=== PATIENT | female | born 2000 | race African-American/Black ===

== ENCOUNTER 2019-01-05 10:36 | Emergency (ER) | payer SELFPAY ==
[~2019-01-05] VITALS: Ht 157.5 cm; Wt 50.0 kg
[2019-01-05] MEDS ORDERED: SODIUM CHLORIDE 0.9% 1,000 ML IV ONE (11:41)
[2019-01-05] MEDS ORDERED: ONDANSETRON HCL 4MG/2ML INJ IV STA (11:41)
[2019-01-05] MEDS ORDERED: KETOROLAC 30MG/ML VIAL IV ONE (11:45)
[2019-01-05 13:17] VITALS: BP 109/75
== END 2019-01-05 13:19 | disposition home or self-care (01) ==
LOC: ER 10:36
DX: R11.2 Nausea with vomiting, unspecified (principal)
CPT/HCPCS: 81025; 96361; 96374; 96375; 99283; J1885; J2405; J7030

== ENCOUNTER 2024-06-16 22:08 | Emergency (ER) | payer SELFPAY ==
[~2024-06-16] VITALS: Ht 157.5 cm; Wt 53.0 kg
[~2024-06-16 22:08] MED LIST: ALBU6.7H3 INH; ONDA4TAB5 MT
[2024-06-16 22:20] VITALS: O2SAT 100
[2024-06-16 22:23] VITALS: BP 137/82; PULSE 109; RESP 18; TEMP 97.8; O2SAT 100
[2024-06-16] MEDS: ONDANSETRON HCL 4MG TABLET PO ONE (22:30)
== END 2024-06-17 04:36 | disposition left against medical advice (07) ==
LOC: ER 22:14
DX: R11.2 Nausea with vomiting, unspecified (principal); J45.909 Unspecified asthma, uncomplicated
CPT/HCPCS: 99283; Q0162